=== PATIENT | male | born 1990 | race Caucasian/White ===

== ENCOUNTER 2021-11-14 19:17 | Emergency (ER) | payer OTHER ==
[2021-11-14 19:43] LABS: RED BLOOD COUNT 5.21 M/UL (4.20-5.50); WHITE BLOOD COUNT 12.6 K/UL (4.5-11.0)
[2021-11-14 20:02] LABS: BUN/CREATININE RATIO 8 (0-10)
== END 2021-11-14 21:15 ==
LOC: ER1 19:17
DX: S01.01XA Laceration without foreign body of scalp, initial encounter (principal); S01.81XA Laceration without foreign body of other part of head, initial encounter; S01.511A Laceration without foreign body of lip, initial encounter; R00.0 Tachycardia, unspecified; W19.XXXA Unspecified fall, initial encounter
CPT/HCPCS: 12002; 12015; 40650; 70450; 71045; 72125; 80053; 85025; 85610; 85730; 90471; 90715; 93005; 96372; 99284; G0480; J1630